=== PATIENT | female | born 1985 ===

== ENCOUNTER 2017-01-09 03:30 | Outpatient (CLI) | payer BC ==
[~2017-01-09] VITALS: Ht 162.6 cm; Wt 101.4 kg
[~2017-01-09 03:30] MED LIST: MARNATAL-F1 CAP PO; MOTRIN 600600 MG/TAB PO; PERCOCET 325 MG1 TA2 PO
[2017-01-09 03:59] VITALS: BP 111/78; PULSE 106; TEMP 98.1
[2017-01-09 04:15] VITALS: BP 111/78; PULSE 106; TEMP 98.1
== END 2017-01-09 05:25 | disposition home or self-care (01) ==
LOC: LDRO 03:30
DX: O62.9 Abnormality of forces of labor, unspecified (principal); Z3A.41 41 weeks gestation of pregnancy

== ENCOUNTER 2017-01-09 12:31 | Inpatient (IN) | payer BC ==
[~2017-01-09] VITALS: Ht 162.6 cm; Wt 101.4 kg
[2017-01-09] VITALS (25 sets, daily range): BP systolic 98–151; BP diastolic 54–102; PULSE 57–115; TEMP 97.6–98.6
[2017-01-09 14:28] LABS: BASO % 0.4 % (0.0-2.0); EOS % 0.5 % (0-4.0); GRAN # 6.1 (1.4-6.5); GRAN % 74.1 % (42.2-75.2); HEMOGLOBIN 12.1 g/dl (12.5-16.0); LYMPH # 1.6 (1.2-3.4); LYMPH % 18.9 % (20.0-51.0); MEAN CELL VOLUME 84 fl (80.0-100.0); MEAN CORPUSCULAR HEMOGLOBIN 29 pg (27.0-31.0); MEAN CORPUSCULAR HGB CONC 35 g/dl (33.0-37.0); MEAN PLATELET VOLUME 12.4 fl (7.4-10.4); MONO # 0.4 (0.1-0.6); MONO % 5.1 % (1.7-9.3); RED BLOOD COUNT 4.15 M/mm3 (4.10-5.30); REDCELL DISTRIBUTION WIDTH-CV 14.6 % (11.5-14.5); WHITE BLOOD COUNT 8.2 K/mm3 (4.8-10.8)
[2017-01-09 14:29] LABS: HEMATOCRIT 34.9 % (37.0-47.0); PLATELET COUNT 142 K/mm3 (130-400)
[2017-01-10 03:00] VITALS: BP 114/68; PULSE 71; TEMP 98
[2017-01-10 07:45] VITALS: BP 94/63; PULSE 56; TEMP 97.6
[2017-01-10 16:52] VITALS: BP 101/64; PULSE 62; TEMP 97.7
[2017-01-10 21:00] VITALS: BP 119/75; PULSE 63; TEMP 98.2
[2017-01-11 07:41] VITALS: BP 99/70; PULSE 57; TEMP 98.3
[2017-01-11] MEDS ORDERED: IBU600 MG PO (09:12)
[2017-01-11] MEDS ORDERED: PERCOCET 325 MG1 TA2 PO (09:13)
== END 2017-01-11 12:35 | disposition home or self-care (01) | DRG 775 ==
LOC: LDRO 12:31 → OB 13:26 → LDR 13:26 → OB 22:55
PROVIDERS: Obstetrics & Gynecology
PROC: 10E0XZZ Delivery of Products of Conception, External Approach (ICD-10-PCS; principal; 2017-01-09)
PROC: 0HQ9XZZ Repair Perineum Skin, External Approach (ICD-10-PCS; 2017-01-09)
DX: O48.0 Post-term pregnancy (principal); O36.0130 Maternal care for anti-D [Rh] antibodies, third trimester, not applicable or unspecified; O77.0 Labor and delivery complicated by meconium in amniotic fluid; O99.824 Streptococcus B carrier state complicating childbirth; O70.0 First degree perineal laceration during delivery; Z3A.41 41 weeks gestation of pregnancy; Z37.0 Single live birth
CPT/HCPCS: J2400; J2590; J2791; J7120

== ENCOUNTER 2017-01-16 13:00 | Outpatient (CLI) | payer BC ==
[~2017-01-16 13:00] MED LIST changes: +IBU600 MG PO
== END 2017-01-16 15:15 | disposition home or self-care (01) ==
LOC: LDRO 13:00 → COL.LAB 13:00 → LDRO 15:15
DX: O89.4 Spinal and epidural anesthesia-induced headache during the puerperium (principal)

== ENCOUNTER → 2020-10-06 | Outpatient (CLI) | payer BC | LOC: ZCOL.LAB 08:27 | DX: Z20.822 Contact with and (suspected) exposure to COVID-19 (principal) ==

== ENCOUNTER 2020-10-09 04:37 | Inpatient (IN) | payer BC ==
[~2020-10-09] VITALS: Ht 162.6 cm; Wt 108.2 kg
[2020-10-09] VITALS (37 sets, daily range): BP systolic 102–154; BP diastolic 62–111; PULSE 54–100; TEMP 97.5–98.4
--- NOTE | 2020-10-09 04:45 | NUR ---
PT ARRIVED TO UNIT AMBULATORY WITH COMPLAINTS OF CONTRACTIONS THAT BEGAN LAST EVENING AT APPROXIMATELY 2100. PT ORIENTED TO ROOM, CHANGED INTO GOWN, EFMX2 APPLIED, VS OBTAINED, SVE PERFORMED.
[2020-10-09 06:14] LABS: BASO % 0.4 % (0.0-2.0); EOS # 0.1 (0.0-0.7); EOS % 0.9 % (0-4.0); GRAN # 5.1 (1.4-6.5); HEMATOCRIT 37.7 % (37.0-47.0); HEMOGLOBIN 12.5 g/dl (12.5-16.0); LYMPH # 2.1 (1.2-3.4); LYMPH % 27.3 % (20.0-51.0); MEAN CELL VOLUME 85 fl (80.0-100.0); MEAN CORPUSCULAR HEMOGLOBIN 28 pg (27.0-31.0); MEAN CORPUSCULAR HGB CONC 33 g/dl (33.0-37.0); MONO # 0.5 (0.1-0.6); MONO % 5.8 % (1.7-9.3); PLATELET COUNT 174 K/mm3 (130-400); RED BLOOD COUNT 4.44 M/mm3 (4.10-5.30); REDCELL DISTRIBUTION WIDTH-CV 13.9 % (11.5-14.5)
--- NOTE | 2020-10-09 07:54 | NUR ---
0700 DR CRUZ CALLED AND UPDATED ON PATIENT HERE EARLY WITH CONTRACTIONS. ORDERS TO ALLOW PATIENT UP TO WALK IF WANTS TO AND DR ROLES WILL BE IN MID MORNING TO AROM PER PATIENTS REQUEST
--- NOTE | 2020-10-09 08:42 | NUR ---
4970 DR NG AT BEDSIDE. AROM WITH AMNIOHOOK FOR CLEAR FLUID NOTED. NO ODOR
--- NOTE | 2020-10-09 12:14 | NUR ---
1200 PATIENT FEELING SOME PRESSURE. SVE UNCHANGED PITOCIN INCREASED TO 6 MU. VARIABLES NOTED
--- NOTE | 2020-10-09 13:26 | NUR ---
1230 PATIENT STATES CONTRACTIONS GETTING MORE INTENSE. WANTS EPIDURAL. Pawan HARMON CRNA CALLED TO COME FOR PLACEMENT. 1240 Jimenez HARMON CRNA AT BEDSIDE. PATIENT SITS UP FOR EPIDURAL PLACEMENT. PATIENT TOLERATE WELL SEE Jimenez HARMON CRNA NOTES FOR QUESTIONS.
--- NOTE | 2020-10-09 13:30 | NUR ---
1315 DR ROLES CALLED AND UPDATED, NO NEW ORDERS AT THIS TIME
--- NOTE | 2020-10-09 13:58 | NUR ---
1400 DR ROLES CALLED TO COME FOR DELIVERY NOW. VARIABLE WITH EACH CONTRACTION AND PATIENT FEELING PRESSURE
--- NOTE | 2020-10-09 14:59 | NUR ---
1400 ancef 2 g[address] given now and Dr Bergman called to come now. Patient feeling more pressure with each contraction
--- NOTE | 2020-10-09 15:02 | NUR ---
4452 DR ROLES HERE FOR DELIVERY
--- NOTE | 2020-10-09 15:03 | NUR ---
1435 BABY GIRL BORN VIA BY DR NG CORD CLAMPED AND CUT AND BABY TO MOMS CHEST. STRONG CRY NOTED. 1440 PLACENTA DELIVERED AND PITOCIN STARTED PER PROTOCOL AT 333/HR. COURTNEY WELL. FUNDUS FIRM MINIMAL BLEEDING.
[2020-10-10 03:45] VITALS: BP 107/73; PULSE 55; TEMP 97.5
[2020-10-10 06:46] VITALS: BP 133/88; PULSE 65; TEMP 97.7
[2020-10-10] MEDS ORDERED: IBU600 MG PO (09:35)
[2020-10-10 11:25] VITALS: BP 114/75; PULSE 73; TEMP 97.9
[2020-10-10 15:31] VITALS: BP 117/84; PULSE 64; TEMP 97.9
[2020-10-10 19:30] VITALS: BP 115/70; PULSE 65; TEMP 98.8
[2020-10-11 09:50] VITALS: BP 119/88; PULSE 66; TEMP 97.6
== END 2020-10-11 11:00 | disposition home or self-care (01) | DRG 807 ==
LOC: LDRO 04:37 → LDR 04:52 → OB 16:26
PROVIDERS: ADMIT Obstetrics & Gynecology
PROC: 10E0XZZ Delivery of Products of Conception, External Approach (ICD-10-PCS; principal; 2020-10-09)
PROC: 0HQ9XZZ Repair Perineum Skin, External Approach (ICD-10-PCS; 2020-10-09)
DX: O48.0 Post-term pregnancy (principal); Z37.0 Single live birth; O99.214 Obesity complicating childbirth; E66.9 Obesity, unspecified; O99.824 Streptococcus B carrier state complicating childbirth; Z3A.40 40 weeks gestation of pregnancy
CPT/HCPCS: J0690; J2590; J2791; J2795; J7120